=== PATIENT | male | born 1950 | race Caucasian/White ===

== ENCOUNTER 2017-01-11 15:00 | Inpatient (IN) | payer SELFPAY ==
[~2017-01-11] VITALS: Ht 172.7 cm; Wt 57.2 kg
--- NOTE | ~2017-01-11 | PN ---
Unit #: [id number] #: [id number] Patient: CHAIM CHEN [id number] [facility] [address] [place] [address] [id number] MR#: [id number] NAME: CHAIM CHEN ROOM: P204 Age: 66 Sex: M Admission Date: 01/11/2017 : 1950 Attending Physician: Norman Hnery M.D. Admitting Physician: Norman Henry M.D. Primary Care Physician: Generic Doctor Not In System [facility] PROGRESS NOTES DATE 01/13/2017 DISCUSSION Mr. Griffith is a 66-year-old male seen on 01/13/2017. Patient interviewed. Chart reviewed. Obtained information from nursing staff. Patient continues to report having withdrawal symptoms, anxious, nervous, hand tremors. Patient's vital signs 97.8, 82, 148/109. Patient tolerating medication fairly well. Currently on detox protocol. Complete review of system unremarkable. MENTAL STATUS EXAMINATION General appearance, patient dressed casually. Attention span, concentration fair. Oriented in time, place and person. Mood and affect labile. Speech monotone. Thought process concrete. Patient denied any thoughts of harming self or others. Recent and remote memory poor. Insight and judgement poor. DIAGNOSES 1. Alcohol use disorder, severe. 2. Mood disorder NOS. ASSESSMENT/PLAN Advised to continue with current medication and therapeutic protocol. If needed, consider further adjustment of medication. Dictated by... Ariella Connolly/tanya TD: 01/14/2017 23:11 JOB #: [id number] Unit #: [id number] #: [id number] Patient: CHAIM CHEN [facility] PROGRESS NOTES Page 1 of 1 X Norman Henry MD X PROGRESS NOTE
--- NOTE | ~2017-01-11 | PA ---
Unit #: [id number] #: [id number] Patient: CHAIM CHEN [id number] [facility] [address] [place] [address] [id number] MR#: [id number] NAME: CHAIM CHEN ROOM: P204 Age: 66 Sex: M Admission Date: 01/11/2017 : 1950 Date of Assessment: 01/12/2017 Attending Physician: Norman Henry M.D. Admitting Physician: Norman Henry M.D. Primary Care Physician: Generic Doctor Not In System PSYCHIATRIC ASSESSMENT INFORMANTS The patient reliability, fair informant and chart reliability, good. CHIEF COMPLAINT Depression and alcohol withdrawal. HISTORY OF PRESENT ILLNESS Mr. Griffith is a 66-year-old [place] male, presented with the above-mentioned complaint. The patient reports he moved from [place] to [place] 2 years ago. Lives alone, has support from two sons. The patient reported that he was drinking a lot lately and needing help. The patient reported having conflict with girlfriend of 2 years and being fearful of losing her. The patient reported triggers of boredom due to being retired. The patient's BA level was 0.219. Denied any suicidal or homicidal ideation or psychotic symptom. The patient reported drinking about 4 to 8 ounces beer. The patient's son stated that the patient's girlfriend is not speaking with him. The patient's son stated that he drinks when he isolates. The patient was able to contract for safety at this time, but reported feeling sad and depressed. The patient reported tobacco use, one pack a day and alcohol 6 beers daily. History of blackout. History of withdrawal symptoms. No history of any HIV or hepatitis or any IV drug use. Currently, having tremor, poor appetite, and depressed mood. The patient needed inpatient admission at this time for psychiatric stabilization. PAST PSYCHIATRIC HISTORY Unknown for any history of any previous treatment. FAMILY HISTORY AND SOCIAL HISTORY The patient has a good support system from his two sons. Recent move to [facility] 2 years ago from [place]. No history of abuse. The patient retired. MEDICAL HISTORY Unremarkable for any chronic medical illness. Musculoskeletal; muscle strength and tone, no atrophy or abnormal movement. Gait normal. MEDICATION HISTORY None. ALLERGIES No known drug allergies. Unit #: [id number] #: [id number] Patient: CHAIM CHEN SUBSTANCE ABUSE HISTORY Please see above. REVIEW OF SYSTEMS HEENT: Eyes, clear. Ears, nose, mouth, and throat; clear. CARDIOVASCULAR: Unremarkable. RESPIRATORY: Unremarkable. GI: Unremarkable. : Unremarkable. SKIN: Unremarkable. LYMPH NODE: Unremarkable. NEUROLOGIC: Unremarkable. ENDOCRINE: Unremarkable. HEMATOLOGIC: Unremarkable. ALLERGIC/IMMUNOLOGIC: Unremarkable. MUSCULOSKELETAL: Muscle strength and tone, no atrophy or abnormal movement. Gait normal. MENTAL STATUS EXAMINATION CONSTITUTIONAL: Measurement of vital signs; temperature 98.4, heart rate 101, respiratory rate 16, blood pressure 154/107. Height 5 feet 8 inches and weight 126 pounds. GENERAL APPEARANCE: The patient dressed casually. The patient did not show any facial deformity. MUSCULOSKELETAL: Please see above. PSYCHIATRIC EXAMINATION Description of speech; regular rate, normal volume, normal articulation, and coherent. Description of thought process, goal directed. Description of association, intact. Description of abnormal psychotic thinking; the patient denied any hallucination or delusions, but sad and depressed mood and substance abuse. Description of the patient's judgment: Concerning everyday activity, poor. Social situation, poor. Concerning psychiatric condition, poor. Complete mental status examination; oriented in time, place, and person. Recent and remote memory, fair. Attention span and concentration, fair. Language, able to name object and repeat phrases. Fund of knowledge, aware of current event and passive vocabulary intact. Mood and affect, sad and dysphoric. Insight and judgment, fair to poor. ASSETS AND LIABILITIES Assets, the patient is articulate and able to take care of his ADL. Liability, history of substance abuse and depression. ADMITTING DIAGNOSES Psychiatric: Alcohol use disorder, severe, F10.20 and mood disorder, not otherwise specified, F32.9. Secondary diagnosis: Deferred. Medical diagnosis: None. Stressors: Psychosocial stressors. PSYCHIATRIC PLAN AND TREATMENT GOAL AND DISCHARGE PLAN 1. Advised to admit the patient on the inpatient unit. Provide safe, supportive, and structured environment. Unit #: [id number] #: [id number] Patient: CHAIM CHEN 2. Ordered labs; CBC, CMP, UA, and UDS. 3. Detox protocol and detox monitoring. The patient to attend all the programing, group therapy, individual therapy, and chemical dependency group. Treatment goal to attain euthymic mood, gain insight into his problem, and learn coping skills. DISCHARGE PLAN Plan to stabilize the patient and consider followup in outpatient program. ESTIMATED LENGTH OF STAY 3 to 5 days. Dictated by... Ariella Connolly/cammie TD: 01/12/2017 21:39 JOB #: [id number] PSYCHIATRIC ASSESSMENT Page 1 of 1 X Norman Henry MD X PSYCHIATRIC ASSESSMENT
--- NOTE | ~2017-01-11 | CO ---
Unit #: [id number] #: [id number] Patient: NACHO CHEN [id number] [place] [address] [id number] MR#: [id number] NAME: NACHO CHEN ROOM: [facility] Age: 66 Sex: M Admission Date: 01/11/2017 : 1950 Attending Physician: Norman Henry M.D. Consultation Date: 01/14/2017 CONSULTATION REPORT SUBJECTIVE Nacho is a 66-year-old with a long history of alcohol abuse. He was admitted for detox. At the time of admission, he gave no prior history of high blood pressure, although it had been some time since he had seen a doctor. Three days into his detox, blood pressures remained quite high at 154/107, 148/109 with heart rate of 82, 96. Nacho was seen for his admission H and P on 01/12/2017. ASSESSMENT High blood pressure, not controlled. I do not think that this continued elevation is due to his detox. PLAN Start Norvasc 5 mg p.o. daily. Continue to monitor blood pressure. Note, 24 hours after starting 5 mg of Norvasc, pressures dropped to 142/93. He will need to follow up with PCP. Dictated by... Keerthi Roldan/cammie TD: 01/15/2017 17:01 JOB #: [id number] CONSULTATION REPORT Page 1 of 1 X Lenka Mcnally X CONSULTATION REPORT
--- NOTE | ~2017-01-11 | HP ---
Unit #: [id number] #: [id number] Patient: NACHO CHEN [id number] [facility] [address] [place] [address] [id number] I MR#: [id number] NAME: NACHO CHEN ROOM: P204 Age: 66 Sex: M Admission Date: 01/11/2017 : 1950 Attending Physician: Norman Henry M.D. Admitting Physician: Norman Henry M.D. Primary Care Physician: Generic Doctor Not In System HISTORY AND PHYSICAL HISTORY OF PRESENT ILLNESS Nacho is a 66-year-old [place] gentleman admitted to [address] [place] [address] with depression and verbalizing wanting to hurt himself. He speaks beautiful Romanian and Vincentian. PAST MEDICAL HISTORY History of alcohol abuse. PAST SURGICAL HISTORY Nothing reported. ALLERGIES No known drug allergies. SOCIAL HISTORY Smokes 1 pack per day. Drinks at least 6 beers on a daily basis and denies illicit drug use. FAMILY HISTORY Medically noncontributory. REVIEW OF SYSTEMS CONSTITUTIONAL: No fever or chills. HEENT: Denies any sore throat, ear pain or runny nose. CARDIOVASCULAR: Denies chest pain, irregular heart rhythm or palpitations. CHEST: Denies shortness of breath or cough. No hemoptysis. GASTROINTESTINAL: Denies nausea, vomiting, diarrhea or chronic constipation. ENDOCRINE: Denies history of increased thirst or urination. No recent significant weight loss or gain. GENITOURINARY: Denies dysuria, frequency, or hematuria. SKIN: Denies any rashes. HEMATOLOGIC: Denies history of increased bleeding or bruising. MUSCULOSKELETAL: Denies any hot, swollen joints. No generalized muscle pain. NEUROLOGIC: Denies problems with vision or speech. No frequent, severe headaches. No numbness, tingling or weakness in any extremities. Denies loss of bladder or bowel control. CURRENT MEDICATIONS Detox protocol. PHYSICAL EXAMINATION Unit #: [id number] #: [id number] Patient: NACHO CHEN GENERAL: Alert, thin, in no apparent distress. VITAL SIGNS: Blood pressure 154/100, heart rate 100, respirations 16, temperature 98.6. WEIGHT: 126. HEIGHT: 5 feet 8 inches. SKIN: Warm and dry without rash or lesion. HEENT: Normocephalic. TMs not viewed. Oral and nasal passages clear. Conjunctivae clear. PERRLA. EOMs intact. NECK: Supple without lymphadenopathy or thyromegaly. HEART: Regular rate and rhythm without murmur. LUNGS: Clear. ABDOMEN: Soft, nontender. : Not done. EXTREMITIES: No evidence of cyanosis, clubbing or edema. Moves all without focal deficit. NEUROLOGICAL: Grossly within normal limits. Cranial Nerves: II: Visual valenzuela are intact. III, IV AND : Extraocular movements are intact. Pupils are equal, round and reactive to light. V: Facial sensation is grossly normal. VII: Facial movements and expression are normal. VIII: Auditory acuity grossly intact. IX, X: Uvula is midline. Phonation is normal. XI: Patient shrugs shoulders and turns head normally. XII: Tongue protrudes in the midline. Sensory and Motor Function: Sensory and motor sensation is grossly normal. Motor: moves all extremities well. Coordination: Gait is normal. Deep Tendon Reflexes: Intact. IMPRESSION Psychiatric admission. RECOMMENDATIONS PSYCHIATRIC: Per psychiatrist. MEDICAL: See no contraindication to participate in facility's activities. MEDICAL PROGNOSIS Good. MEDICAL CONDITION Stable. Dictated by... Ana RoldanAShe. for Ariella Moreno/tanya TD: 01/12/2017 16:10 JOB #: [id number] Unit #: [id number] #: [id number] Patient: NACHO CHEN HISTORY AND PHYSICAL Page 1 of 1 X Lenka Mcnally HISTORY AND PHYSICAL
--- NOTE | ~2017-01-11 | PN ---
Unit #: [id number] #: [id number] Patient: CHAIM CHEN [id number] [facility] [address] [place] [address] [id number] MR#: [id number] NAME: CHAIM CHEN ROOM: P204 Age: 66 Sex: M Admission Date: 01/11/2017 : 1950 Attending Physician: Norman Henry M.D. Admitting Physician: Norman Henry M.D. Primary Care Physician: Generic Doctor Not In System [facility] PROGRESS NOTES DATE 01/14/2017 DISCUSSION Mr. Griffith is a 66-year-old male. The patient continues to look withdrawn, isolative, anxious, still having withdrawal symptoms. The patient currently on detox protocol. The patient's vital signs, 97.4, 109, 143/93. REVIEW OF SYSTEMS Complete review of systems unremarkable. MENTAL STATUS EXAMINATION General appearance: Patient dressed casually. Attention span and concentration, fair. Oriented in time, place, and person. Mood and affect, labile. Speech, monotone. Thought process, concrete. The patient denied any thoughts of harming self or others. Recent and remote memory, poor. Insight and judgment, poor. DIAGNOSES 1. Mood disorder, NOS. 2. Alcohol use disorder, severe. ASSESSMENT/PLAN Advised to continue with the current detox protocol, continue with the current treatment, if needed consider further adjustment of medication. Dictated by... Ariella Connolly/milagros TD: 01/15/2017 05:11 JOB #: [id number] Unit #: [id number] #: [id number] Patient: CHAIM CHEN [facility] PROGRESS NOT[facility] Page 1 of 1 X Norman Henry MD PROGRESS NOTE
--- NOTE | ~2017-01-11 | DS ---
Unit #: [id number] #: [id number] Patient: CHAIM CHEN [id number] [facility] [address] [place] [address] [id number] I MR#: [id number] NAME: CHAIM CHEN ROOM: [facility] Age: 66 Sex: M Admission Date: 01/11/2017 : 1950 Discharge Date: 01/15/2017 Attending Physician: Norman Henry M.D. Primary Care Physician: Generic Doctor Not In System DISCHARGE SUMMARY REASON FOR ADMISSION Alcohol abuse, depression. DIAGNOSTIC STUDIES AST 81, ALT 81. HOSPITAL COURSE The patient was admitted to inpatient unit on January 11, 2017, and discharged on 01/15/17. The patient was treated with group therapy, individual therapy, chemical dependency group, detox protocol, detox monitoring. The patient showed improvement and subsequently was discharged with the plan to follow up in outpatient clinic. DISCHARGE DIAGNOSES Psychiatric: [place] I Alcohol use disorder, severe, F10.20. Mood disorder, NOS, F32.9. [place] II Deferred. [place] III None. [place] IV Psychosocial stressors. [place] V INSTRUCTIONS TO PATIENT The patient is to follow up in outpatient clinic as well as social welfare clerk. DISCHARGE MEDICATIONS Remeron 15 mg at bedtime for depression and sleep CONDITION AT DISCHARGE The patient is pleasant and cooperative, denied any psychotic symptoms or suicidal ideation. PROGNOSIS Guarded. DIET AND ACTIVITY As tolerated. Unit #: [id number] #: [id number] Patient: CHAIM CHEN Dictated by... Ariella Connolly/milagros TD: 01/20/2017 06:05 JOB #: [id number] DISCHARGE SUMMARY Page 1 of 1 X Norman Henry MD X DISCHARGE SUMMARY
[2017-01-12 14:10] LABS: BASOPHIL# 0.1 X10e3 (0-0.3); BASOPHIL% 0.8 % (0-2.5); EOSINOPHIL# 0.1 X10e3 (0-0.7); EOSINOPHIL% 1.3 % (0.0-7.0); HEMOGLOBIN 16.4 gm/dL (13.0-16.0); LYMPHOCYTE# 1.4 X10e3 (1.0-3.5); LYMPHOCYTE% 20.5 % (17.0-45.0); MEAN CELL VOLUME 91.9 FL (83-96); MEAN CORPUSCULAR HEMOGLOBIN 30.8 PG (28-34); MEAN CORPUSCULAR HGB CONC 33.6 g/dL (30-36); MEAN PLATELET VOLUME 8.6 FL (6.5-11.5); MONOCYTE# 0.9 X10e3 (0-1.0); MONOCYTE% 13.8 % (3.0-12.0); NEUTROPHIL# 4.3 X10e3 (1.5-7.1); NEUTROPHIL% 63.6 % (40-75); PLATELET COUNT 260 X10e3 (140-420); RED BLOOD COUNT 5.33 X10e (3.90-5.60); RED CELL DISTRIBUTION WIDTH 14.3 % (11.0-15.5); WHITE BLOOD COUNT 6.7 X10e3 (4.0-10.5)
[2017-01-12 14:14] LABS: ALBUMIN SERUM 4.3 g/dL (3.5-5.0); BILIRUBIN,TOTAL 1.6 mg/dL (0.2-2.0); BUN/CREATININE RATIO 13.75; CALCIUM SERUM 9.4 mg/dL (8.4-10.2); CREATININE SERUM 0.8 mg/dL (0.6-1.4); GLOM FILT RATE Estimated 93.1 mL/min (>60); POTASSIUM 4.4 mmol/L (3.5-5.1); PROTEIN TOTAL SERUM 7.1 g/dL (6.0-8.3)
[2017-01-12 14:19] LABS: DIFF IND NO
[2017-01-15 10:02] LABS: URINE APPEARANCE CLEAR; URINE BILIRUBIN NEG (NEG); URINE BLOOD NEG (NEG); URINE COLOR DK YELLOW; URINE GLUCOSE NEG (NEG); URINE KETONE TRACE (NEG); URINE LEUKOCYTE ESTERASE 2+ (NEG); URINE NITRATE NEG (NEG); URINE PROTEIN NEG (NEG); URINE SPECIFIC GRAVITY 1.021 (1.003-1.035); URINE UROBILINOGEN 0.2 MG/DL (NEG)
[2017-01-15 10:06] LABS: URINE BACTERIA AUWI NEG (NEGATIVE); URINE SQUAMOUS EPITHELIAL CELL OCC /[HPF]
[2017-01-15 10:08] LABS: AMPHETAMINE NEG (NEG); BARBITURATES NEG (NEG); BENZODIAZEPINES POS (NEG); COCAINE NEG (NEG); MARIJUANA NEG (NEG); OPIATES NEG (NEG); TRICYCLIC ANTIDEPRESSANTS NEG (NEG); U METHADONE NEG (NEG)
[2017-01-15 10:34] LABS: URINE CRYSTALS CALCIUM OXALATE /[HPF]
== END 2017-01-15 16:10 | disposition home or self-care (01) | DRG 897 ==
LOC: P2S 20:22
PROVIDERS: Psychiatry & Neurology Psychiatry
PROC: HZ2ZZZZ Detoxification Services for Substance Abuse Treatment (ICD-10-PCS; principal; 2017-01-11)
DX: F10.20 Alcohol dependence, uncomplicated (principal); F39 Unspecified mood [affective] disorder; I10 Essential (primary) hypertension
CPT/HCPCS: 80053; 80307; 81003; 85025; 86592